=== PATIENT | female | born 1955 | race Caucasian/White ===

== ENCOUNTER → 2017-05-26 | Outpatient (CLI) | payer OTHER ==
[~2017-05-26] MED LIST: FLUO20TA25 PO; HYDR-2443 PO; LAMO25TA52 PO; MORP30TA3 PO; MORP5VIA PO; MORP60CP12 PO; OMEP10CA2 PO; ONDA4TAB10 PO; PREG25CA PO; SIMV5TAB5 PO; TIZA2CAP PO
== END ==
LOC: CFH 10:21
PROVIDERS: ATTEND Orthopaedic Surgery
DX: M19.012 Primary osteoarthritis, left shoulder (principal); S43.492D Other sprain of left shoulder joint, subsequent encounter; X58.XXXD Exposure to other specified factors, subsequent encounter; M25.412 Effusion, left shoulder; G89.29 Other chronic pain

== ENCOUNTER → 2019-12-04 | Outpatient (CLI) | payer MEDICARE ==
[~2019-12-04] MED LIST changes: +MORP-30 PO; -MORP30TA3 PO; +SIMV5TAB14 PO; -SIMV5TAB5 PO
== END | disposition home or self-care (01) ==
LOC: CFH 09:45
PROVIDERS: ATTEND Internal Medicine
DX: Z12.31 Encounter for screening mammogram for malignant neoplasm of breast (principal)
CPT/HCPCS: 77067